=== PATIENT | female | born 2000 | race Caucasian/White ===

== ENCOUNTER 2018-06-02 22:00 | Emergency (ER) | payer MEDICAID ==
--- NOTE | 2018-06-02 22:13 | EDPHY ---
H & P Stated Complaint: L ankle pain Time Seen by Provider: 06/02/18 22:12 HPI/ROS: HPI CHIEF COMPLAINT: Left ankle pain/swelling HISTORY OF PRESENT ILLNESS: 17-year-old female presents emergency room with left ankle pain. Patient states she tripped and missed a curb. She rolled her foot inwards and now has pain and swelling to left lateral ankle. No numbness or tingling. Neurovascular intact with good distal pulse. Good cap refill. This happened at 9:30 a.m. Tonight. Denies any other areas of injury. She did fall on her knees and has abrasions present denies significant pain. Denies alcohol or drugs tonight. Past Medical History: Denies medical history Past Surgical History: Denies surgical history Social History: Denies Family History: Denies ROS REVIEW OF SYSTEMS: 10 Systems were reviewed and negative with the exception of the elements mentioned in the history of present illness. Exam Constitutional triage nursing summary reviewed, vital signs reviewed, awake/ alert. Eyes normal conjunctivae and sclera, EOMI, PERRLA. HENT normal inspection, atraumatic, moist mucus membranes, no epistaxis, neck supple/ no meningismus, no raccoon eyes. Respiratory clear to auscultation bilaterally, normal breath sounds, no respiratory distress, no wheezing. Cardiovascular rate normal, regular rhythm, no murmur, no edema, distal pulses normal. Gastrointestinal soft, non-tender, no rebound, no guarding, normal bowel sounds, no distension, no pulsatile mass. Genitourinary no CVA tenderness. Musculoskeletal left lower extremity: Good distal pulse, good cap refill, mild tender palpation over the left lateral ankle swelling noted, full range of motion left ankle. Sensation intact. No compartment syndrome. Does not appear malaligned. No laceration, no open wound. no midline vertebral tenderness, full range of motion, no calf swelling, no tenderness of extremities, no meningismus, good pulses, neurovascularly intact. Skin pink, warm, & dry, no rash, skin atraumatic. Neurologic awake, alert and oriented x 3, AAOx3, moves all 4 extremities equally, motor intact, sensory intact, CN II-XII intact, normal cerebellar, normal vision, normal speech. Psychiatric normal mood/affect. Heme/Lymph/Immune no lymphadenopathy. Differential Diagnosis: Includes but is not limited to in a particular order left ankle sprain, left ankle contusion, fracture, ligamentous disruption, soft tissue injury Medical Decision Making: Plan for this patient x-ray left ankle, ice pack, anti -inflammatory pain medicine and re-evaluate. Re-evaluation: Left ankle x-ray reviewed no evidence of acute fracture. There is a bony lesion that needs follow-up with Orthopedics I discussed this with the patient. Recommend the patient ice, anti-inflammatory pain medicine, crutches, walking boot. Follow up with Orthopedics next week. Recommend elevation. Return emergency room if worsening pain swelling questions or concerns Source: Patient - Personal History LMP (Females 10-55): 15-21 Days Ago Current Tetanus Diphtheria and Acellular Pertussis (TDAP): Yes - Medical/Surgical History Hx Asthma: No Hx Chronic Respiratory Disease: No Hx Diabetes: No Hx Cardiac Disease: No Hx Renal Disease: No Hx Cirrhosis: No Hx Alcoholism: No Hx HIV/AIDS: No Hx Splenectomy or Spleen Trauma: No Other PMH: ankle injury, - Social History Smoking Status: Never smoked Constitutional: Initial Vital Signs Temperature (C) 36.5 C 06/02/18 22:04 Heart Rate 90 06/02/18 22:04 Respiratory Rate 20 06/02/18 22:04 Blood Pressure 136/106 H 06/02/18 22:04 O2 Sat (%) 96 06/02/18 22:04 O2 Delivery Mode Room Air Allergies/Adverse Reactions: No Known Allergies Allergy (Unverified 06/02/18 22:03) Home Medications: Medication Instructions Recorded Adderall 10 MG (*) 06/02/18 PENICILLIN V POTASSIUM 06/02/18 Sertraline HCl 06/02/18 Departure - Departure Disposition: Home, Routine, Self-Care Clinical Impression: Ankle sprain Qualifiers: Encounter type: initial encounter Involved ligament of ankle: unspecified ligament Laterality: left Qualified Code(s): S93.402A - Sprain of unspecified ligament of left ankle, initial encounter Condition: Good Instructions: Ankle Fracture (ED), Ankle Sprain (ED) Additional Instructions: 1. Ice. 2. Anti-inflammatory pain medicine 3. Follow up with Orthopedics Referrals: Patient,NotPresent [Unknown] - As per Instructions Harrison Kim MD [Medical Doctor] - As per Instructions
[2018-06-02 23:07] VITALS: BP 132/84
== END 2018-06-02 23:07 | disposition home or self-care (01) ==
DX: S93.402A Sprain of unspecified ligament of left ankle, initial encounter (principal); X50.1XXA Overexertion from prolonged static or awkward postures, initial encounter; Y92.488 Other paved roadways as the place of occurrence of the external cause
CPT/HCPCS: L4386